=== PATIENT | male | born 1950 | race Caucasian/White ===

== ENCOUNTER 2018-12-23 17:18 | Emergency (ER) | payer MEDICARE, OTHER ==
[~2018-12-23 17:18] MED LIST: DIPH0.5S4 IM; FLU60SYR30 IM ONLY; METH-543 PO; OXYC-865 PO
--- NOTE | 2018-12-23 17:29 | ER Report ---
History and Physical Time Seen By MD: 17:29 Hx. of Stated Complaint: Pt. was shopping at [employer], and he felt "something" get tight in his anterior neck around his collar bones near his throat. No SOB. Pt. swam for 50 minutes at the [facility] center. Also, having headaches frequently. No fevers. HPI/ROS CHIEF COMPLAINT: Throat tightness, transient. HISTORY OF PRESENT ILLNESS: 68-year-old male patient presents to emergency room with complaint of transient throat tightness. Patient states that he had gone swimming this afternoon. He swam for approximately 50 minutes. He states when he got out of that he felt fine. He went to the grocery store. While there he states he had an episode of tightness in his neck, he describes as being deeper than his throat. He states this discomfort lasted for approximately 5 minutes an d resolved spontaneously. Patient states he also has had an episode where he had difficult time doing math. Patient is very good at math normally, however that happened 2 weeks ago. He also states that he has had episodes of headaches, which he normally gets a couple times a year which has been very frequent, almost daily for the last few weeks. Patient denies any shortness of breath, he denies having any chest pain, he denies having any nausea or vomiting. Patient states that he has not taken any medication for this. He states that at this time he feels fine. REVIEW OF SYSTEMS: Respiratory: No cough, no dyspnea. Cardiovascular: No chest pain, no palpitations. Gastrointestinal: No vomiting, no abdominal pain. Musculoskeletal: As noted above Allergies: Coded Allergies: Sulfa (Sulfonamide Antibiotics) (Verified Allergy, Unknown, 12/23/18) aspirin (Verified Allergy, Unknown, 12/23/18) ibuprofen (Verified Allergy, Unknown, 12/23/18) Past Medical/Surgical History Patient has a past medical history of migraines, A. fib, hyperlipidemia, back pain, occasional alcohol use, anxiety. Patient has surgical history of a cardiac ablation, tonsillectomy. Reviewed Nurses Notes: Yes Smoking Status: Never Smoker Constitutional Vital Sign - Last 24 Hours 12/23/18 12/23/18 12/23/18 17:24 17:30 18:00 Temp 97.5 Pulse 51 53 50 Resp 16 B/P (MAP) 122/75 (91) 119/76 (90) Pulse Ox 94 96 94 O2 Delivery Room Air Physical Exam General Appearance: The patient is alert, has no immediate need for airway protection and no current signs of toxicity. Respiratory: Chest is non tender, lungs are clear to auscultation. Cardiac: regular rate and rhythm Gastrointestinal: Abdomen is soft and non tender, no masses, bowel sounds normal. Musculoskeletal: Neck: Neck is supple and non tender. Extremities have full range of motion and are non tender. Skin: No rashes or lesions. DIFFERENTIAL DIAGNOSIS: After history and physical exam differential diagnosis was considered for muscle spasm, esophageal spasm, CO, intracranial hemorrhage, dehydration. Medical Decision Making Data Points Result Diagram: 12/23/18 1750 12/23/18 1750 Laboratory Hematology Test 12/23/18 17:50 12/23/18 19:27 Red Blood Count 5.04 M/uL (4.00-5.60) Mean Corpuscular Volume 91.0 fL (80.0-96.0) Mean Corpuscular Hemoglobin 30.7 pg (26.0-33.0) Mean Corpuscular Hemoglobin Concent 33.7 g/dL (32.0-36.0) Red Cell Distribution Width 13.9 % (11.5-14.5) Mean Platelet Volume 7.3 fL (7.2-11.1) Neutrophils (%) (Auto) 74.7 % (39.4-72.5) Lymphocytes (%) (Auto) 14.8 % (17.6-49.6) Monocytes (%) (Auto) 7.5 % (4.1-12.4) Eosinophils (%) (Auto) 1.1 % (0.4-6.7) Basophils (%) (Auto) 1.9 % (0.3-1.4) Nucleated RBC Relative Count (auto) 0.0 /100WBC Neutrophils # (Auto) 5.8 K/uL (2.0-7.4) Lymphocytes # (Auto) 1.1 K/uL (1.3-3.6) Monocytes # (Auto) 0.6 K/uL (0.3-1.0) Eosinophils # (Auto) 0.1 K/uL (0.0-0.5) Basophils # (Auto) 0.1 K/uL (0.0-0.1) Nucleated RBC Absolute Count (auto) 0.00 K/uL Sodium Level 140 mmol/L (137-145) Potassium Level 4.7 mmol/L (3.5-5.0) Chloride Level 110 mmol/L (98-107) Carbon Dioxide Level 25 mmol/L (22-30) Blood Urea Nitrogen 20 mg/dl (9-21) Creatinine 1.00 mg/dl (0.66-1.25) Glomerular Filtration Rate Calc > 60.0 Random Glucose 98 mg/dl (75-110) Calcium Level 9.0 mg/dl (8.4-10.2) Total Bilirubin 1.1 mg/dl (0.2-1.3) Aspartate Amino Transf (AST/SGOT) 22 U/L (0-35) Alanine Aminotransferase (ALT/SGPT) 32 U/L (0-56) Alkaline Phosphatase 56 U/L (0-126) C-Reactive Protein 0.5 mg/dl (<1.0) Total Protein 7.1 g/dl (6.3-8.2) Albumin 4.2 g/dl (3.5-5.0) Troponin I 0.023 ng/ml Chemistry Test 12/23/18 17:50 12/23/18 19:27 White Blood Count 7.7 k/uL (4.5-11.0) Red Blood Count 5.04 M/uL (4.00-5.60) Hemoglobin 15.5 g/dL (14.0-18.0) Hematocrit 45.9 % (42.0-52.0) Mean Corpuscular Volume 91.0 fL (80.0-96.0) Mean Corpuscular Hemoglobin 30.7 pg (26.0-33.0) Mean Corpuscular Hemoglobin Concent 33.7 g/dL (32.0-36.0) Red Cell Distribution Width 13.9 % (11.5-14.5) Platelet Count 253 K/uL (150-450) Mean Platelet Volume 7.3 fL (7.2-11.1) Neutrophils (%) (Auto) 74.7 % (39.4-72.5) Lymphocytes (%) (Auto) 14.8 % (17.6-49.6) Monocytes (%) (Auto) 7.5 % (4.1-12.4) Eosinophils (%) (Auto) 1.1 % (0.4-6.7) Basophils (%) (Auto) 1.9 % (0.3-1.4) Nucleated RBC Relative Count (auto) 0.0 /100WBC Neutrophils # (Auto) 5.8 K/uL (2.0-7.4) Lymphocytes # (Auto) 1.1 K/uL (1.3-3.6) Monocytes # (Auto) 0.6 K/uL (0.3-1.0) Eosinophils # (Auto) 0.1 K/uL (0.0-0.5) Basophils # (Auto) 0.1 K/uL (0.0-0.1) Nucleated RBC Absolute Count (auto) 0.00 K/uL Glomerular Filtration Rate Calc > 60.0 Calcium Level 9.0 mg/dl (8.4-10.2) Total Bilirubin 1.1 mg/dl (0.2-1.3) Aspartate Amino Transf (AST/SGOT) 22 U/L (0-35) Alanine Aminotransferase (ALT/SGPT) 32 U/L (0-56) Alkaline Phosphatase 56 U/L (0-126) C-Reactive Protein 0.5 mg/dl (<1.0) Total Protein 7.1 g/dl (6.3-8.2) Albumin 4.2 g/dl (3.5-5.0) Troponin I 0.023 ng/ml EKG/Imaging EKG Interpretation 12 lead EKG: Rhythm: Sinus bradycardia with ventricular rate of 49 bpm Pegram: normal QRS: normal ST segments: normal Imaging Study: CT scan of the brain without intravenous contrast. Indication: Increased frequency of headaches Comparison study:None Technique: Multiple axial images were obtained through the brain without the use of intravenous contrast. One of the following dose optimization techniques was utilized in the performance of this exam: Automated exposure control; adjustment of the mA and/or kV according to the patient's size; or use of an iterative reconstruction technique. Specific details can be referenced in the facility's radiology CT exam operational policy. The examination demonstrates no evidence of acute intracranial hemorrhage. There is no evidence of extra-axial collection or hydrocephalus. There is no abnormal density identified within the brain parenchyma. There is no evidence of disruption of the peripheral miranda-white junction. The bony structures are unremarkable. IMPRESSION:Unremarkable CT scan of the brain without contrast. Report Dictated By: Jeramie Hall at 12/23/2018 6:20 PM Report E-Signed By: Jeramie Hall at 12/23/2018 6:22 PM ED Course/Re-evaluation ED Course Patient was admitted exam room, history and physical were obtained. Differential diagnoses were considered. On examination lungs are clear, heart was regular, abdomen was soft and nontender. A CBC, CMP, troponin, EKG, CT scan of the head were done. Lab results were unremarkable except troponin came back higher than when I was expecting. Came back at 0.019. CT scan of the head was done. EKG showed a sinus bradycardia with ventricular rate of 49 bpm. I discussed the findings with the patient and his . I discussed that with the troponin coming back higher than what I was expecting I would like to repeat it. After the patient had been in the emergency room 2 hours a did repeat the troponin. At that time and bit a proximally 4 hours from the time that the patient had his episode. The repeat troponin came back at 0.023. I discussed the results with patient. With it being virtually unchanged I do not believe this is related to a cardiac event. I am unsure as to what the exact etiology of his pain was. I discussed this with the patient and his . As a result I will like him to follow-up with his primary care provider, Dr. Rinaldi either later this week or early next week. We discussed doing a Holter monitor. 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 He states he would prefer to hold off on that at this point in time. I will go ahead and defer that to Dr. Rinaldi at the patient's request. We will discharge patient home at this time. I would encourage him to increase his fluid intake. He is to return to emergency room if condition worsens. Decision to Disposition Date: Dec 23, 2018 Decision to Disposition Time: 20:35 Depart Departure Latest Vital Signs Vital Signs Date Time Temp Pulse Resp B/P (MAP) Pulse Ox O2 Delivery O2 Flow Rate FiO2 12/23/18 18:00 50 119/76 (90) 94 12/23/18 17:24 97.5 16 Room Air Impression: Primary Impression: Neck pain without injury Condition: Improved Disposition: HOME OR SELF-CARE Patient Instructions: Acute Neck Pain (ED) Additional Instructions: Increase fluid intake. Get plenty of rest. Follow up with Dr. Rinaldi at the end of this week or early next week. Limit activity by how you are feeling. Return to the ER if condition worsens. Continue with your normal medications. IFEANYI ESPINOZA Dec 23, 2018 17:29
[2018-12-23 17:56] LABS: PLATELET COUNT, AUTOMATED 253 K/uL (150-450)
[2018-12-23 18:00] VITALS: BP 119/76
--- NOTE | 2018-12-23 18:10 | EKG ---
FACILITY: [facility] - [place] PATIENT NAME: SHYANNE VENTURA : [id number] MR: [id number] V: [id number] EXAM DATE: ORDERING PHYSICIAN: IFEANYI ESPINOZA TECHNOLOGIST: Test Reason : throat tightness, discomfort Blood Pressure : / mmHG Vent. Rate : 049 BPM Atrial Rate : 049 BPM P-R Int : 182 ms QRS Dur : 086 ms QT Int : 448 ms P-R-T Axes : 067 -10 054 degrees QTc Int : 404 ms Marked sinus bradycardia Abnormal ECG When compared with ECG of 07-MAR-2017 02:54, Criteria for Septal infarct are no longer present Nonspecific T wave abnormality no longer evident in Anterior leads Confirmed by FRANKY JERONIMO ([id number]) on 12/24/2018 6:07:40 AM Referred By: Confirmed By:FRANKY JERONIMO
--- NOTE | 2018-12-23 18:26 | RADIOLOGY IMAGING REPORT ---
FACILITY: [facility] PATIENT NAME: Oni Barron : 1950 MR: [id number] V: [id number] EXAM DATE: ORDERING PHYSICIAN: IFEANYI ESPINOZA TECHNOLOGIST: Location: [facility] [place] Patient: Oni Barron : 1950 Visit/Account:[id number] Date of Sevice: 12/23/2018 Study: CT scan of the brain without intravenous contrast. Indication: Increased frequency of headaches Comparison study:None Technique: Multiple axial images were obtained through the brain without the use of intravenous contr ast. One of the following dose optimization techniques was utilized in the performance of this exam: Autom ated exposure control; adjustment of the mA and/or kV according to the patient's size; or use of an i terative reconstruction technique. Specific details can be referenced in the facility's radiology C T exam operational policy. The examination demonstrates no evidence of acute intracranial hemorrhage. There is no evidence of ex tra-axial collection or hydrocephalus. There is no abnormal density identified within the brain parenchyma. There is no evidence of disruption of the peripheral miranda-white junction. The bony structures are unremarkable. IMPRESSION:Unremarkable CT scan of the brain without contrast. Report Dictated By: Jeramie Hall at 12/23/2018 6:20 PM Report E-Signed By: Jeramie Hall at 12/23/2018 6:22 PM WSN:[id number]
== END 2018-12-23 20:46 | disposition home or self-care (01) ==
LOC: ER 17:56
DX: M54.2 Cervicalgia (principal); R00.1 Bradycardia, unspecified
CPT/HCPCS: 36415; 70450; 82040; 82247; 82310; 82374; 82435; 82565; 82947; 84075; 84132; 84155; 84295; 84450; 84460; 84484; 84520; 85025; 86140; 93005; 99284